=== PATIENT | female | born 1985 | race Caucasian/White ===

== ENCOUNTER 2016-08-10 10:27 | Emergency (ER) | payer SELFPAY ==
[~2016-08-10] VITALS: Ht 167.6 cm; Wt 51.9 kg
[~2016-08-10 10:27] MED LIST: ORPH100T PO
[2016-08-10 10:31] VITALS: BP 118/78; PULSE 79; RESP 15; TEMP 98.8; O2SAT 97
[2016-08-10] MEDS ORDERED: AUGM875T PO (10:41)
--- NOTE | 2016-08-10 10:42 | PD ---
HPI Chief Complaint: Cold / Flu Symptoms Time Seen by Provider: 10:38 Travel History International Travel<30 days: No Contact w/Intl Traveler<30days: No Traveled to known affect area: No History of Present Illness HPI Patient is a healthy 31-year-old female who presents emergency department with complaint of flulike symptoms. For the past 5 days she has had bilateral sinus pressure, congestion and discharge not responding to [id number] Advil Cold and Sinus. This morning she woke up with a slight sore throat and severe pain in the right ear. No drainage. No fevers or chills. She denies any history of seasonal allergies. PFSH Past Medical History Anxiety: Yes Cardiovascular Problems: Yes (OPEN HEART FOR "BLUE BABY" AT ) Diminished Hearing: No Seizures: Yes (BEFORE HEART SURG) Influenza Vaccination: No ?: Not LMP: 1 WEEK : 0 Past Surgical History Cardiac Surgery: Yes (SEPTAL REPAIR) Coronary Artery Bypass Graft: Yes (OPEN HEART SURGERY AN INFANT - DAYDRON PATCH WITH RECONSTRUCTION) Social History Alcohol Use: Yes (BEER DAILY) Tobacco Use: Yes (1PPD) Substance Use: No Allergies-Medications (Allergen,Severity, Reaction): Coded Allergies: No Known Allergies (Verified , 08/10/16) Reported Meds & Prescriptions Reported Meds & Active Scripts Active Augmentin (Amoxicillin-Clavulanate) 875-125 mg Tab 875 Mg PO BID 7 Days not for use in CrCl <30 ml/min. Review of Systems Except as stated in HPI: all other systems reviewed are Neg Physical Exam Narrative GENERAL: Well-appearing female in no acute distress SKIN: Warm and dry. HEAD: Normocephalic. EYES: Pupils equal and round. No scleral icterus. No injection or drainage. ENT: Tenderness to palpation in the bilateral maxillary sinus. Nasal mucosal injection. Mild erythema the posterior pharynx without tonsillar edema, exudate or palatal petechiae. Left TM clear. Right TM slightly bulging with erythema, dullness. NECK: Supple with shoddy anterior cervical lymphadenopathy CARDIOVASCULAR: Regular rate and rhythm. RESPIRATORY: No accessory muscle use. MUSCULOSKELETAL: Normal gait NEUROLOGICAL: Awake and alert. Normal speech. PSYCHIATRIC: Appropriate mood and affect; insight and judgment normal. Data Data Last Documented VS Vital Signs Date Time Temp Pulse Resp B/P Pulse Ox O2 Delivery O2 Flow Rate FiO2 08/10/16 10:31 98.8 79 15 118/78 97 MDM Medical Decision Making Medical Screen Exam Complete: Yes Emergency Medical Condition: Yes Medical Record Reviewed: Yes Differential Diagnosis 31-year-old female here with complaint of sinus congestion, nasal discharge for 5 days and now 1 day of sore throat and right ear pain. On exam patient has right otitis media. Differential includes bacterial versus viral otitis, sinusitis, pharyngitis, viral syndrome, influenza. Narrative Course Given the acute onset of right sided ear pain patient will be treated with Augmentin and discharged home. Diagnosis Primary Impression: Right otitis media Qualified Code: H66.001 - Acute suppurative otitis media of right ear without spontaneous rupture of tympanic membrane, recurrence not specified Additional Impression: Sinusitis Qualified Code: J01.00 - Acute non-recurrent maxillary sinusitis Referrals: Primary Care Physician as needed Patient Instructions: General Instructions, Otitis Media (ED), Sinusitis (ED) Additional Instructions: Antibiotics as prescribed. Sudafed and Mucinex as needed for sinus congestion, pressure. Med/Other Pt SpecificInfo: Prescription(s) given Scripts Amoxicillin-Clavulanate (Augmentin)875-125 mg Gct153 Mg PO BID 7 Days Ref 0 not for use in CrCl <30 ml/min. Prov:Leti Pozo MD 08/10/16 Disposition: 01 DISCHARGE HOME Condition: Stable Leti Pozo MD Aug 10, 2016 10:42
== END 2016-08-10 11:19 | disposition home or self-care (01) ==
LOC: PHEFT 10:27
DX: H66.001 Acute suppurative otitis media without spontaneous rupture of ear drum, right ear (principal); J01.00 Acute maxillary sinusitis, unspecified; F17.200 Nicotine dependence, unspecified, uncomplicated
CPT/HCPCS: 99283

== ENCOUNTER 2017-01-24 14:48 | Emergency (ER) | payer SELFPAY ==
[~2017-01-24] VITALS: Ht 167.6 cm; Wt 52.3 kg
[~2017-01-24 14:48] MED LIST changes: +AUGM875T PO; -ORPH100T PO
[2017-01-24 14:57] VITALS: BP 135/68; PULSE 81; RESP 15; TEMP 97.4; O2SAT 98
[2017-01-24] MEDS ORDERED: ACETAMINOPHEN/HYDROcodone 325 MG/5 MG TAB PO ONE (15:30)
[2017-01-24] MEDS ORDERED: DICL75TA PO (15:51)
--- NOTE | 2017-01-24 15:56 | PD ---
HPI Chief Complaint: Injury Time Seen by Provider: 15:21 Travel History International Travel<30 days: No Contact w/Intl Traveler<30days: No Traveled to known affect area: No History of Present Illness HPI 32-year-old female that presents to the ED for evaluation of injury to her right foot and ankle about a week ago. Per patient she jumped off a moving truck and has had pain since. Per patient is happened last Friday. Per patient his been bruising and swelling but the patient does not seem to be improving and per patient he seems to be getting worse. Per patient pain is 7 out of 10. She is able to ambulate with a but with a limp. She denies any fevers chills or sweats. No other injuries reported. No chest pain or shortness of breath. No allergies to medication. PFSH Past Medical History Anxiety: Yes Cardiovascular Problems: Yes (OPEN HEART FOR "BLUE BABY" AT ) Diminished Hearing: No Seizures: Yes (BEFORE HEART SURG) Influenza Vaccination: No ?: Not : 0 Past Surgical History Cardiac Surgery: Yes (SEPTAL REPAIR) Coronary Artery Bypass Graft: Yes (OPEN HEART SURGERY AN - DAYDRON PATCH WITH RECONSTRUCTION) Social History Alcohol Use: Yes (BEER DAILY) Tobacco Use: Yes (1PPD) Substance Use: No Allergies-Medications (Allergen,Severity, Reaction): Coded Allergies: No Known Allergies (Verified , 01/24/17) Reported Meds & Prescriptions Reported Meds & Active Scripts Active Diclofenac Sodium DR (Diclofenac Sodium) 75 Mg Tabdr 75 Mg PO BID PRN Review of Systems Except as stated in HPI: all other systems reviewed are Neg Physical Exam Narrative GENERAL: SKIN: Warm and dry. HEAD: Atraumatic. Normocephalic. EYES: Pupils equal and round. No scleral icterus. No injection or drainage. ENT: No nasal bleeding or discharge. Mucous membranes pink and moist. NECK: Trachea midline. No JVD. CARDIOVASCULAR: Regular rate and rhythm. RESPIRATORY: No accessory muscle use. Clear to auscultation. Breath sounds equal bilaterally. GASTROINTESTINAL: Abdomen soft, non-tender, nondistended. Hepatic and splenic margins not palpable. MUSCULOSKELETAL: Extremities without clubbing, cyanosis, or edema. No obvious deformities. Full range of motion of the upper and lower extremities bilaterally. Patient does have bruising and swelling noted on the right ankle. Most of the pain appears to be on the lateral and medial malleolus. Soft tissue swelling noted. Bruising goes through the dorsal aspect of the foot. No pain on the dorsal aspect of the foot. Pupils pulses bilaterally. Full range of motion of the toes. Able to ambulate with a limp. NEUROLOGICAL: Awake and alert. No obvious cranial nerve deficits. Motor grossly within normal limits. Five out of 5 muscle strength in the arms and legs. Normal speech. PSYCHIATRIC: Appropriate mood and affect; insight and judgment normal. Data Data Last Documented VS Vital Signs Date Time Temp Pulse Resp B/P (MAP) Pulse Ox O2 Delivery O2 Flow Rate FiO2 01/24/17 14:57 97.4 81 15 135/68 (90) 98 Orders Orders Ankle, Complete ([id number]) (01/24/17 15:21) Foot, Complete ([id number]) (01/24/17 15:21) Ice/Cold Pack (01/24/17 15:21) Crutches (01/24/17 15:21) Acetamin-Hydrocod 325-5 Mg ([place] 5-325 (01/24/17 15:30) Brace Ankle Stirrup (01/24/17 ) Splint Or Brace Apply/Monitor (01/24/17 16:00) MDM Medical Decision Making Medical Screen Exam Complete: Yes Emergency Medical Condition: Yes Medical Record Reviewed: Yes Interpretation(s) X-ray of the right ankle shows tiny avulsion fracture. X-ray of the right foot show no sign of acute bony injury. Differential Diagnosis Fracture versus bruise versus contusion versus sprain Narrative Course 32-year-old female that presents to the ED for evaluation of right ankle and foot pain. Patient was properly examined and was found to have signs and symptoms consistent with appears to be musculoskeletal injury. X-rays were done. X-rays showed avulsion fracture. Patient was reassured. The family patient likely has about sprain. Patient will be given a brace as well as crutches to stay off the foot to let it heal. Patient was given prescription for diclofenac sodium for pain. Told to apply ice or warm compresses. Keep it elevated. Ankle and foot should heal in the next couple of weeks. See ED worsening symptoms. Follow with PCP. Diagnosis Primary Impression: Ankle fracture, right Qualified Codes: S82.891A - Other fracture of right lower leg, initial encounter for closed fracture Referrals: Nino Marcos Jr., MD Patient Instructions: General Instructions Additional Instructions: Take medication only if needed. Otherwise take Tylenol or Motrin. Apply ice. Keep the leg elevated. Follow up with PCP or ortho. See ED if worst. Med/Other Pt SpecificInfo: Prescription(s) given Scripts Diclofenac Sodium DR (Diclofenac Sodium DR) 75 Mg Tabdr 75 MG PO BID Y for PAIN SCALE 1 TO 10, #20 TAB 0 Refills Prov: Chacho Squires MD 01/24/17 Disposition: 01 DISCHARGE HOME Condition: Stable Christopher Resendiz Jan 24, 2017 15:56
--- NOTE | 2017-01-24 16:00 | RADRPT ---
EXAM DATE/TIME: 01/24/2017 15:34 [facility] COMPARISON: No previous studies available for comparison. INDICATIONS : Right lateral ankle pain with swelling post fall. MEDICAL HISTORY : None. SURGICAL HISTORY : None. ENCOUNTER: Initial ACUITY: 4 - 6 days PAIN SCORE: 7/10 LOCATION: Right lateral ankle FINDINGS: There is a tiny avulsion adjacent to the talofibular joint and the source is uncertain with adjacent soft tissue swelling. CONCLUSION: Tiny avulsion. Lala Nicole MD on January 24, 2017 at 15:57 Board Certified Radiologist. This report was verified electronically.
--- NOTE | 2017-01-24 16:01 | RADRPT ---
EXAM DATE/TIME: 01/24/2017 15:37 [facility] COMPARISON: No previous studies available for comparison. INDICATIONS : Right lateral foot pain with swelling post fall. MEDICAL HISTORY : None. SURGICAL HISTORY : None. ENCOUNTER: Initial ACUITY: 4 - 6 days PAIN SCORE: 7/10 LOCATION: Right lateral foot FINDINGS: No definite fractures, or dislocations are identified. No definite lytic or sclerotic lesion is seen . The joint spaces are well maintained. CONCLUSION: Unremarkable study. Lala Nicole MD on January 24, 2017 at 15:59 Board Certified Radiologist. This report was verified electronically.
== END 2017-01-24 16:38 | disposition home or self-care (01) ==
LOC: PHEFT 14:48
DX: S82.891A Other fracture of right lower leg, initial encounter for closed fracture (principal); W17.89XA Other fall from one level to another, initial encounter; Y93.39 Activity, other involving climbing, rappelling and jumping off; Y92.9 Unspecified place or not applicable; Z72.0 Tobacco use
CPT/HCPCS: 29515; 73610; 73630; 99283; E0113; L1906